=== PATIENT | female | born 1975 ===

== ENCOUNTER 2017-06-26 10:57 | Emergency (ER) | payer MEDICAID ==
--- NOTE | 2017-06-26 12:02 | ED PDOC ---
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 denies: Fever, Chills, Nausea, Vomiting , Loss Of Appetite Alleviating Factors: None Additional Complaint(s): 41yo female c/o pelvic pain, thinks shes about 12 wks but unsure of LMP , pain sharp, crampy, associated w "dark yellow urine". Denies syncope, fever, diarrhea or vomiting. w one miscarriage. No care yet for this . Started vitamins today. Abnormal Vaginal Bleeding: No Against Medical Advice - AMA Patient Left Against Medical Advice: The patient declines admission to the hospital and wishes to leave the Emergency Department. This action is against my medical advice. This decision was made with informed refusal. The patient was told that admission to the hospital is necessary. Explanation of the reasons why were discussed. The risks of leaving were explained to the patient and include, but are not limited to, worsening of known or currently unknown conditions, permanent disability and from undiagnosed or untreated conditions. The patient has the capacity to make this informed decision and understands my explanation of the current medical problem and risks of leaving. The patient voluntarily accepts these risks and signed an AMA form documenting our conversation. The patient was given the opportunity to ask questions and reconsider. The patient was encouraged to return to the Emergency Department at any time for further care. Past Medical History Reviewed: Historical Data, Nursing Documentation, Vital Signs Vital Signs: Last Vital Signs Temp 97.0 F L 06/26/17 11:39 Pulse 89 06/26/17 11:39 Resp 18 06/26/17 11:39 BP 104/68 06/26/17 11:39 Pulse Ox 99 06/26/17 11:39 - Medical History PMH: No Chronic Diseases - Family History Family History: States: Unknown Family Hx - Living Arrangements Living Arrangements: With Family - Social History Current smoker - smoking cessation education provided: No - Allergies Allergies/Adverse Reactions: Allergies Allergy/AdvReac Type Severity Reaction Status Date / Time No Known Allergies Allergy Verified 06/26/17 18:37 - Laboratory Results Result Diagrams: 06/26/17 12:40 06/26/17 12:40 - ECG O2 Sat by Pulse Oximetry: 99 Medical Decision Making Medical Decision Making: workup for first term without care initiated r/o threatened , ectopic , demise or other diagnosis not listed labs / UA ordered Patient went to US but not enough images obtained for reliable study and 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 Left AMA after risks were explained. Stable vitals, nontender abdomen. Risks/ benefits explained in bengali via service car driver, will return later today to complete workup. Disposition - Clinical Impression Clinical Impression: Threatened miscarriage, Left against medical advice - Patient ED Disposition Is Patient to be Admitted: No - Disposition [facility]errals[facility]] Disposition: Routine/Home Disposition Time: 14:10 Condition: STABLE Additional Instructions: Return to ER for any concern and at any time to complete treatment. Instructions: Threatened Miscarriage (DC), Leaving Against Medical Advice Forms: [facility] (Ivorian) Print Language: MARSHALLESE
[2017-06-26 12:49] LABS: SQUAMOUS EPITHIAL 8 /hpf (0-5); URINE BACTERIA OCC (<OCC); URINE BILIRUBIN NEGATIVE (NEGATIVE); URINE BLOOD NEGATIVE (NEGATIVE); URINE CLARITY CLOUDY (Clear); URINE COLOR YELLOW (YELLOW); URINE GLUCOSE (UA) NEG (Normal); URINE LEUKOCYTE ESTERASE NEG Leu/uL (Negative); URINE PROTEIN NEGATIVE (NEGATIVE); URINE UROBILINOGEN 0.2-1.0 mg/dL (0.2-1.0)
[2017-06-26 12:56] LABS: BASO # 0.1 K/uL (0.0-0.2); BASO % 0.8 % (0.0-2.0); EOS % 0.2 % (0.0-4.0); HEMOGLOBIN 12.3 g/dL (12.0-16.0); LYMPH # 1.5 K/uL (1.0-4.3); LYMPH % 15.4 % (20.0-40.0); MEAN CELL VOLUME 92.8 fl (81.0-99.0); MEAN CORPUSCULAR HEMOGLOBIN 32.1 pg (27.0-31.0); MEAN CORPUSCULAR HGB CONC 34.6 g/dL (33.0-37.0); MEAN PLATELET VOLUME 8.8 fl (7.2-11.7); MONO # 0.6 K/uL (0.0-0.8); NEUT # 7.7 K/uL (1.8-7.0); NEUT % 77.6 % (50.0-75.0); NRBC % 0.1 % (0.0-0.0); RBC 3.82 Mil/uL (3.80-5.20); RED CELL DISTRIBUTION WIDTH 13.6 % (11.5-14.5); WHITE BLOOD COUNT 9.9 K/uL (4.8-10.8)
[2017-06-26 13:11] LABS: ALBUMIN 3.6 g/dL (3.5-5.0); ALT/SGPT 33 U/L (9-52); AST/SGOT 23 U/L (14-36); BLOOD UREA NITROGEN 9 mg/dl (7-17); CALCIUM 9.4 mg/dL (8.4-10.2); GFR AFRICAN-AMERICAN > 60; GFR NON-AFRICAN AMERICAN > 60
[2017-06-26 15:49] VITALS: BP 110/72; PULSE 78; RESP 15; TEMP 98.1
[2017-06-29 10:49] VITALS: O2SAT 99
== END 2017-06-26 14:15 | disposition left against medical advice (07) ==
LOC: H.ER 10:57
DX: O20.0 Threatened abortion (principal); Z3A.12 12 weeks gestation of pregnancy

== ENCOUNTER 2017-06-26 18:10 | Emergency (ER) | payer MEDICAID ==
[2017-06-26 18:40] VITALS: BP 103/64; PULSE 84; RESP 16; TEMP 98; O2SAT 98
--- NOTE | 2017-06-26 19:25 | ED PDOC ---
Lower Extremity Pain/Injury Time Seen by Provider: 06/26/17 18:56 Chief Complaint (Nursing): Lower Extremity Problem/Injury Chief Complaint (Provider): Lower Extremity Problem/Injury History Per: Patient History/Exam Limitations: no limitations Onset/Duration Of Symptoms: Days (x2) Current Symptoms Are (Timing): Still Present Additional Complaint(s): 41 year old female, of with one miscarriage believes she is about 12 weeks , presents to the ED complaining of left adnexal pain, onset two days ago. Patient reports she has had no care so far. Patient reports of prior medical problems. 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 Patient returns today to get ultrasound down. Patient's earlier visit lists a HCG level of around 43,000. Denies bleeding. PMD: None Provided Past Medical History Reviewed: Historical Data, Nursing Documentation, Vital Signs Vital Signs: Last Vital Signs Temp 98.0 F 06/26/17 18:37 Pulse 84 06/26/17 18:37 Resp 16 06/26/17 18:37 BP 103/64 06/26/17 18:37 Pulse Ox 98 06/26/17 18:37 - Medical History PMH: No Chronic Diseases - Surgical History Surgical History: No Surg Hx - Family History Family History: States: Unknown Family Hx - Social History Current smoker - smoking cessation education provided: No Alcohol: None Drugs: Denies - Allergies Allergies/Adverse Reactions: Allergies Allergy/AdvReac Type Severity Reaction Status Date / Time No Known Allergies Allergy Verified 06/26/17 18:37 Review of Systems ROS Statement: Except As Marked, All Systems Reviewed And Found Negative Genitourinary Female: Positive for: Pelvic Pain (left adnexal pain ) Physical Exam - Reviewed Nursing Documentation Reviewed: Yes Vital Signs Reviewed: Yes - Physical Exam Appears: Positive for: Non-toxic, No Acute Distress Head Exam: Positive for: ATRAUMATIC, NORMOCEPHALIC Skin: Positive for: Normal Color, Warm, Dry Eye Exam: Positive for: Normal appearance, EOMI, PERRL ENT: Positive for: Normal ENT Inspection Neck: Positive for: Normal, Painless ROM, Supple Cardiovascular/Chest: Positive for: Regular Rate, Rhythm. Negative for: Murmur Respiratory: Positive for: Normal Breath Sounds. Negative for: Respiratory Distress Gastrointestinal/Abdominal: Positive for: Normal Exam, Soft. Negative for: Tenderness Back: Positive for: Normal Inspection. Negative for: L CVA Tenderness, R CVA Tenderness, Vertebral Tenderness Extremity: Positive for: Normal ROM. Negative for: Pedal Edema, Deformity Neurologic/Psych: Positive for: Alert, Oriented - ECG O2 Sat by Pulse Oximetry: 98 (RA) Pulse Ox Interpretation: Normal Medical Decision Making Medical Decision Making: Time: 1918 Plan: -- OB Preg 1st Tri & OB Transvag US Time: 2137 OB ULTRASOUND RESULTS FINDINGS: Fetus: Single live intrauterine gestation. Heart rate: heart rate of 147 beats per minute. Presentation: Transverse. Placenta: Posterior fundal. No placenta previa or abruption. Amniotic fluid: Normal. Anatomy: No gross anomaly is appreciated. BIOMETRICS Gestational age: Estimated gestational age of 25 weeks 2 days by measurements. SABA: 10/07/2017 by ultrasound. EFW: Estimated weight of 778 g. BPD: 6.3 cm, correlating with 25 weeks 4 days. HC: 23.2 cm, correlating with 25 weeks 2 days. AC: 20.7 cm, correlating with 25 weeks 2 days. FL: 4.5 cm, correlating with 25 weeks 0 days. MATERNAL: Uterus: Unremarkable. No myometrial mass. Cervix: No cervical dilatation or effacement. Free fluid: No free fluid. IMPRESSION: 1. Single live intrauterine gestation. Thank you for allowing us to participate in the care of your patient. Dictated and Authenticated by: Nathan Al MD 06/26/2017 9:25 PM Eastern Time ([place] & [place]) Time: 2257 -- Urine results are negative. Patient will be discharged and given follow up with women's health. Scribe Attestation: Documented by Kings Galeas, acting as a scribe for Dr. Chelita Mariano MD. Provider Scribe Attestation: All medical record entries made by the Scribe were at my direction and personally dictated by me. I have reviewed the chart and agree that the record accurately reflects my personal performance of the history, physical exam, medical decision making, and the department course for this patient. I have also personally directed, reviewed, and agree with the discharge instructions and disposition. Disposition - Clinical Impression Clinical Impression: - Patient ED Disposition Is Patient to be Admitted: No Counseled Patient/Family Regarding: Studies Performed, Diagnosis, Need For Followup - Disposition Referrals: [facility] [Outside] [facility] [Outside] Disposition: Routine/Home Disposition Time: 20:40 Condition: IMPROVED Additional Instructions: follow up in [facility] continue vitamin return to ED with any worsening or concerning symptoms Instructions: Care Forms: [facility] (Tajik) Print Language: AZERBAIJANI
--- NOTE | 2017-06-26 21:26 | US ---
EXAM: US After First Trimester, Transabdominal CLINICAL HISTORY: 41 years old, female; Pain; Other: Lt pelvic pain; Gestational age or lmp: Unknown; ; Additional info: Left sided cramping TECHNIQUE: Real-time transabdominal obstetrical ultrasound of the maternal pelvis and a second or third trimester with image documentation. COMPARISON: No relevant prior studies available. FINDINGS: Fetus: Single live intrauterine gestation. Heart rate: heart rate of 147 beats per minute. Presentation: Transverse. Placenta: Posterior fundal. No placenta previa or abruption. Amniotic fluid: Normal. Anatomy: No gross anomaly is appreciated. BIOMETRICS Gestational age: Estimated gestational age of 25 weeks 2 days by measurements. SABA: 10/07/2017 by ultrasound. EFW: Estimated weight of 778 g. BPD: 6.3 cm, correlating with 25 weeks 4 days. HC: 23.2 cm, correlating with 25 weeks 2 days. AC: 20.7 cm, correlating with 25 weeks 2 days. FL: 4.5 cm, correlating with 25 weeks 0 days. MATERNAL: Uterus: Unremarkable. No myometrial mass. Cervix: No cervical dilatation or effacement. Free fluid: No free fluid. IMPRESSION: 1. Single live intrauterine gestation.
[2017-06-26 21:55] LABS: SQUAMOUS EPITHIAL 1 /hpf (0-5); URINE BACTERIA RARE (<OCC); URINE BILIRUBIN NEGATIVE (NEGATIVE); URINE BLOOD NEGATIVE (NEGATIVE); URINE CLARITY SLIGHTY-CLOUDY (Clear); URINE COLOR YELLOW (YELLOW); URINE GLUCOSE (UA) NEG (Normal); URINE LEUKOCYTE ESTERASE NEG Leu/uL (Negative); URINE PROTEIN NEGATIVE (NEGATIVE)
== END 2017-06-27 00:04 | disposition home or self-care (01) ==
LOC: H.ER 18:10
DX: O26.92 Pregnancy related conditions, unspecified, second trimester (principal); Z3A.25 25 weeks gestation of pregnancy; R10.2 Pelvic and perineal pain